=== PATIENT | female | born 1960 | race Caucasian/White ===

== ENCOUNTER 2016-07-02 10:24 | Emergency (ER) | payer OTHER ==
--- NOTE | 2016-07-23 08:06 | ER ---
ADMIT: 07/02/2016 RM/LOC: [facility] MR#: [id number] [id number] BERENICE ZULUAGA [address] [place] [address] Emergency Room Report SEX: F AGE: 56 : 1960 DATE: 07/02/2016 ADDENDUM: CHIEF COMPLAINT: Pedal edema. HISTORY OF PRESENT ILLNESS: This 56-year-old female who has multiple psychiatric diagnoses. She was just recently started on Zyprexa and Remeron about 10 days ago. About 2 or 3 days ago, she developed swelling in her feet. Common side effect of Zyprexa is edema. I told her to hold that medication at this time, follow up with her psychiatrist on Monday to see what other medication options they have available. CLINICAL IMPRESSION: Pedal edema secondary to Zyprexa medication. MIGUEL Knight / Ayan Reyes MD / modl JOB #: [id number] CC: Ayan Reyes MD, Attending Physician
== END 2016-07-02 11:30 | disposition home or self-care (01) ==
LOC: ER 10:24
DX: R06.00 Dyspnea, unspecified (principal); T43.595A Adverse effect of other antipsychotics and neuroleptics, initial encounter; F43.10 Post-traumatic stress disorder, unspecified; F32.9 Major depressive disorder, single episode, unspecified; F41.9 Anxiety disorder, unspecified; F17.210 Nicotine dependence, cigarettes, uncomplicated; Z90.49 Acquired absence of other specified parts of digestive tract; Z90.89 Acquired absence of other organs; Z88.0 Allergy status to penicillin; Z88.5 Allergy status to narcotic agent; Z88.6 Allergy status to analgesic agent; Z88.8 Allergy status to other drugs, medicaments and biological substances; Z79.899 Other long term (current) drug therapy